=== PATIENT | female | born 1955 | race Caucasian/White ===

== ENCOUNTER 2021-03-16 09:04 | Outpatient (REF) | payer MEDICARE, OTHER, SELFPAY | END 2021-03-16 09:05 | disposition home or self-care (01) | LOC: HO.BBR 09:04 | PROVIDERS: PCP Hospitalist; Visit Provider Internal Medicine Hematology | DX: Z13.89 Encounter for screening for other disorder (principal) ==

== ENCOUNTER 2021-04-16 12:56 | Outpatient (REF) | payer MEDICARE, OTHER, SELFPAY | END 2021-04-16 12:57 | disposition home or self-care (01) | LOC: HO.BBR 12:56 | PROVIDERS: Visit Provider Internal Medicine Hematology | DX: Z13.89 Encounter for screening for other disorder (principal) ==

== ENCOUNTER 2021-05-16 12:56 | Outpatient (REF) | payer MEDICARE, OTHER, SELFPAY | END 2021-05-16 12:57 | disposition home or self-care (01) | LOC: HO.BBR 12:56 | PROVIDERS: Visit Provider Internal Medicine Hematology | DX: Z13.89 Encounter for screening for other disorder (principal) ==

== ENCOUNTER 2021-05-24 12:28 | Outpatient (REF) | payer MEDICARE, OTHER, SELFPAY | END 2021-05-24 12:29 | disposition home or self-care (01) | LOC: HO.BBR 12:28 | PROVIDERS: Visit Provider Internal Medicine Hematology | DX: Z13.89 Encounter for screening for other disorder (principal) ==

== ENCOUNTER 2021-06-21 11:03 | Outpatient (REF) | payer MEDICARE, OTHER, SELFPAY | END 2021-06-21 11:04 | disposition home or self-care (01) | LOC: HO.BBR 11:03 | PROVIDERS: Visit Provider Internal Medicine Hematology | DX: Z13.89 Encounter for screening for other disorder (principal) ==

== ENCOUNTER 2021-07-20 10:55 | Outpatient (REF) | payer MEDICARE, OTHER, SELFPAY | END 2021-07-20 10:56 | disposition home or self-care (01) | LOC: HO.BBR 10:55 | PROVIDERS: Visit Provider Internal Medicine Hematology | DX: Z13.89 Encounter for screening for other disorder (principal) ==

== ENCOUNTER 2021-08-20 11:01 | Outpatient (REF) | payer MEDICARE, OTHER, SELFPAY ==
[2021-08-20 13:07] LABS: Ferritin 108 ng/mL (10-250)
== END 2021-08-20 11:02 | disposition home or self-care (01) ==
LOC: HO.BBR 11:01
PROVIDERS: Visit Provider Internal Medicine Hematology
DX: E83.110 Hereditary hemochromatosis (principal)
CPT/HCPCS: 36415; 82728

== ENCOUNTER 2021-09-19 10:56 | Outpatient (REF) | payer MEDICARE, OTHER, SELFPAY | END 2021-09-19 10:57 | disposition home or self-care (01) | LOC: HO.BBR 10:56 | PROVIDERS: Visit Provider Internal Medicine Hematology | DX: Z13.89 Encounter for screening for other disorder (principal) ==

== ENCOUNTER 2021-10-24 11:06 | Outpatient (REF) | payer MEDICARE, OTHER, SELFPAY ==
[2021-10-24 13:12] LABS: Ferritin 111 ng/mL (10-250)
== END 2021-10-24 11:07 | disposition home or self-care (01) ==
LOC: HO.BBR 11:06
PROVIDERS: Visit Provider Internal Medicine Hematology
DX: E83.110 Hereditary hemochromatosis (principal)
CPT/HCPCS: 36415; 82728

== ENCOUNTER 2021-12-05 10:48 | Outpatient (REF) | payer MEDICARE, OTHER, SELFPAY | END 2021-12-05 10:49 | disposition home or self-care (01) | LOC: HO.BBR 10:48 | PROVIDERS: Visit Provider Internal Medicine Hematology | DX: Z13.89 Encounter for screening for other disorder (principal) ==

== ENCOUNTER 2022-01-22 09:53 | Outpatient (REF) | payer MEDICARE, OTHER, SELFPAY ==
[2022-01-22 12:02] LABS: Ferritin 71 ng/mL (10-250)
== END 2022-01-22 09:54 | disposition home or self-care (01) ==
LOC: HO.BBR 09:53
PROVIDERS: Visit Provider Internal Medicine Hematology
DX: E83.110 Hereditary hemochromatosis (principal)
CPT/HCPCS: 36415; 82728

== ENCOUNTER 2022-03-05 10:48 | Outpatient (REF) | payer MEDICARE, OTHER, SELFPAY | END 2022-03-05 10:49 | disposition home or self-care (01) | LOC: HO.BBR 10:48 | PROVIDERS: Visit Provider Internal Medicine Hematology | DX: Z13.89 Encounter for screening for other disorder (principal) ==

== ENCOUNTER 2022-04-30 10:54 | Outpatient (REF) | payer MEDICARE, OTHER, SELFPAY ==
[2022-04-30 13:57] LABS: Ferritin 55 ng/mL (10-250)
== END 2022-04-30 10:55 | disposition home or self-care (01) ==
LOC: HO.BBR 10:54
PROVIDERS: Visit Provider Internal Medicine Hematology
DX: E83.110 Hereditary hemochromatosis (principal)
CPT/HCPCS: 36415; 82728

== ENCOUNTER 2022-05-23 08:46 | Outpatient (REF) | payer MEDICARE, OTHER, SELFPAY | END 2022-05-23 08:47 | disposition home or self-care (01) | LOC: HO.BBR 08:46 | PROVIDERS: Visit Provider Internal Medicine Hematology | DX: Z13.89 Encounter for screening for other disorder (principal) ==

== ENCOUNTER 2022-07-16 10:55 | Outpatient (REF) | payer MEDICARE, OTHER, SELFPAY | END 2022-07-16 10:56 | disposition home or self-care (01) | LOC: HO.BBR 10:55 | PROVIDERS: Visit Provider Internal Medicine Hematology | DX: Z13.89 Encounter for screening for other disorder (principal) ==

== ENCOUNTER 2022-07-23 10:47 | Outpatient (REF) | payer MEDICARE, OTHER, SELFPAY | END 2022-07-23 10:48 | disposition home or self-care (01) | LOC: HO.BBR 10:47 | PROVIDERS: Visit Provider Internal Medicine Hematology | DX: Z13.89 Encounter for screening for other disorder (principal) ==

== ENCOUNTER 2022-09-17 10:50 | Outpatient (REF) | payer MEDICARE, OTHER, SELFPAY ==
[2022-09-17 12:26] LABS: Ferritin 72 ng/mL (10-250)
== END 2022-09-17 10:51 | disposition home or self-care (01) ==
LOC: HO.BBR 10:50
PROVIDERS: Visit Provider Internal Medicine Hematology
DX: E83.110 Hereditary hemochromatosis (principal)
CPT/HCPCS: 36415; 82728